=== PATIENT | male | born 1970 | race Caucasian/White ===

== ENCOUNTER → 2024-05-22 07:16 | Outpatient (REF) | payer BC, SELFPAY | LOC: MRI 3T 07:16 | PROVIDERS: ATTENDING PHYSICIAN Physician Assistant; FAMILY PHYSICIAN Family Medicine | DX: K86.2 Cyst of pancreas (principal) | CPT/HCPCS: 74183; A9575 ==

== ENCOUNTER 2025-01-24 06:18 | Day surgery (SDC) | payer BC, SELFPAY | END 2025-01-24 11:36 | disposition home or self-care (01) | LOC: GI 06:18 | PROVIDERS: ATTENDING PHYSICIAN Specialist | DX: K22.70 Barrett's esophagus without dysplasia (principal); K31.7 Polyp of stomach and duodenum; D17.5 Benign lipomatous neoplasm of intra-abdominal organs; Q40.2 Other specified congenital malformations of stomach; Z13.810 Encounter for screening for upper gastrointestinal disorder | CPT/HCPCS: 43239; 88305 ==